=== PATIENT | female | born 1950 | race Caucasian/White ===

== ENCOUNTER → 2016-03-22 | Outpatient (CLI) | payer BC ==
[~2016-03-22] MED LIST: ALPR-411 PO; CONJ0.3T3 PO; OMEP40CA PO
== END | disposition home or self-care (01) ==
LOC: C.MAMM 10:49
PROVIDERS: ATTEND Family Medicine
DX: E28.319 Asymptomatic premature menopause (principal); M85.80 Other specified disorders of bone density and structure, unspecified site

== ENCOUNTER → 2016-06-21 | Outpatient (CLI) | payer BC ==
--- NOTE | 2016-06-22 15:18 | MAMMOGRAPHY REPORT ---
BILATERAL DIGITAL SCREENING MAMMOGRAM TOMOSYNTHESIS WITH CAD: 06/21/2016 CLINICAL HISTORY: Routine screening examination. TECHNIQUE: Breast tomosynthesis in addition to standard 2D mammography was performed. Current study was also evaluated with a Computer Aided Detection (CAD) system. COMPARISON: Comparison is made to exams dated: 06/20/2015 ultrasound, 06/20/2015 mammogram, 06/12/2015 [facility], 12/25/2013 mammogram, 12/25/2013 ultrasound, and 12/10/2013 mammogram. BREAST COMPOSITION: The tissue of both breasts is extremely dense, which lowers the sensitivity of mammography. FINDINGS: There are multiple bilateral circumscribed masses, with the dominant circumscribed oval ma ss again seen in the 9:00 right breast. This was previously documented to represent a simple cyst o n ultrasound. There are diffuse bilateral rounded punctate microcode calcifications. No suspicious spiculated or irregular mass, architectural distortion or cluster of new, suspicious microcalcifica tions is seen. IMPRESSION: ACR BI-RADS CATEGORY 1: NEGATIVE There is no mammographic evidence of malignancy. A 1 year screening mammogram is recommended. The p atient will receive written notification of the results. Approximately 10% of breast cancers are not detected with mammography. A negative mammographic repor t should not delay biopsy if a clinically suggestive mass is present. Inez Samaniego M.D. ay/:06/21/2016 16:38:36 Roller Print Tender: Lore RAMIREZ)(Chhaya), [facility] letter sent: Normal 1/2 BI-RADS Code: ACR BI-RADS Category 1: Negative
== END | disposition home or self-care (01) ==
LOC: C.MAMM 13:28
PROVIDERS: ATTEND Obstetrics & Gynecology
DX: Z12.31 Encounter for screening mammogram for malignant neoplasm of breast (principal)

== ENCOUNTER → 2017-06-27 | Outpatient (CLI) | payer OTHER ==
--- NOTE | 2017-06-28 07:47 | MAMMOGRAPHY REPORT ---
BILATERAL DIGITAL DIAGNOSTIC MAMMOGRAM TOMOSYNTHESIS WITH CAD: 06/27/2017 CLINICAL HISTORY: 66-year-old woman presents for follow-up of probable fibrocystic changes. Also due for annual bilateral screening examination. TECHNIQUE: Bilateral breast tomosynthesis in addition to standard 2D mammography was performed. Curre nt study was also evaluated with a Computer Aided Detection (CAD) system. COMPARISON: Comparison is made to exams dated: 01/18/2017 ultrasound, 01/18/2017 mammogram, 06/21/2016 mammogram, 06/20/2015 ultrasound, 06/20/2015 mammogram, and 06/12/2015 mammogram - [facility] enter. BREAST COMPOSITION: The tissue of both breasts is heterogeneously dense, which may obscure small mas ses. FINDINGS: There is interval decrease in size of the previously observed dominant, 3 cm cyst in the up per outer 10:00 right breast, documented on the 06/21/2016 mammogram. This confirms a benign fluctuat ing cyst. There are other partially circumscribed fluctuating masses in the left breast, particularl y in the lower inner quadrant that most likely represent additional cysts. There are diffuse bilater al round and punctate microcalcifications. No suspicious spiculated or irregular mass, developing as ymmetry, architectural distortion or cluster of new, suspicious microcalcifications is seen. IMPRESSION: ACR BI-RADS CATEGORY 2: BENIGN There are fluctuating bilateral masses in the breasts, most likely representing benign fibrocystic ch anges and fluctuating cysts. There is no mammographic evidence of malignancy. A 1 year screening dixie mogram is recommended. The patient has been verbally notified of the results. Approximately 10% of breast cancers are not detected with mammography. A negative mammographic report should not delay biopsy if a clinically suggestive mass is present. Inez Samaniego M.D. ay/:06/27/2017 10:07:48 Veneer Glue Jointer Feedback: Adele Velez, [facility] letter sent: Normal 1/2 BI-RADS Code: ACR BI-RADS Category 2: Benign
== END | disposition home or self-care (01) ==
LOC: C.MAMM 09:36
PROVIDERS: ATTEND Obstetrics & Gynecology
DX: N63.10 Unspecified lump in the right breast, unspecified quadrant (principal); N63.20 Unspecified lump in the left breast, unspecified quadrant